=== PATIENT | female | born 1985 | race Caucasian/White ===

== ENCOUNTER 2019-10-07 12:31 | Emergency (ER) | payer BC ==
[~2019-10-07] VITALS: Ht 172.7 cm; Wt 68.0 kg
[2019-10-07 15:00] VITALS: BP 147/72
[2019-10-07] MEDS ORDERED: ALBUTEROL SULFATE 2.5 MG/3 ML NEBU. NEB ONE (15:45)
[2019-10-07] MEDS ORDERED: DEXAMETHASONE SOD PHOS 20 MG/5 ML VIAL. PO ONE (15:45)
[2019-10-07] MEDS ORDERED: PRED50TA PO (16:58)
[2019-10-07] MEDS ORDERED: AZIT250T6 PO (16:58)
--- NOTE | 2019-10-07 17:01 | PHYS DOC ---
Past Medical History Past Medical History: Asthma Past Surgical History: No Surgical History Smoking Status: Current Every Day Smoker Alcohol Use: Occasionally General Adult EDM: Chief Complaint: ASTHMA HPI: HPI: Patient is a 33 year old female who presents to the emergency department with complaints of a productive cough with clear to yellow-green sputum for the last week. Patient states that she has a history of asthma and feels like her inhaler is no longer helping her. Patient denies any known exposure to COVID- 19, states that she wears a mask several times at work and has not been out socializing. She denies any fever, sore throat, body aches, fatigue, nausea, vomiting, diarrhea, chest pain, palpitations, or abdominal pain. She reports that her shortness of breath has increased since yesterday and her wheezing has become more severe, she states she feels like her inhaler is no longer doing an adequate job and requested breathing treatment and steroids. She currently denies any pain. Review of Systems: Review of Systems: Constitutional: Denies fever or chills. [] HENT: Denies ear pain or sore throat, reports postnasal drainage [] Respiratory: See HPI Cardiovascular: Denies chest pain or edema. [] GI: Denies abdominal pain, nausea, vomiting, or diarrhea. [] Musculoskeletal: Denies back pain or joint pain. [] Integument: Denies rash. [] Neurologic: Denies headache Lymphatic: Denies swollen glands. [] Psychiatric: Denies depression or anxiety. [] Heart Score: Risk Factors: Risk Factors: DM, Current or recent (<one month) smoker, HTN, HLP, family history of CAD, obesity. Risk Scores: Score 0 - 3: 2.5% MACE over next 6 weeks - Discharge Home Score 4 - 6: 20.3% MACE over next 6 weeks - Admit for Clinical Observation Score 7 - 10: 72.7% MACE over next 6 weeks - Early Invasive Strategies Current Medications: Current Medications Medications (Trade) Dose Ordered Sig/Ladonna Start Time Stop Time Status Last Admin Dose Admin Albuterol Sulfate (Ventolin Neb Soln) 2.5 mg 1X ONCE 10/07/19 15:45 10/07/19 15:56 DC 10/07/19 16:09 2.5 MG Dexamethasone Sodium Phosphate (Decadron) 10 mg 1X ONCE 10/07/19 15:45 10/07/19 15:56 DC 10/07/19 15:56 10 MG Allergies: Allergies: Allergies Coded Allergies Type Severity Reaction Last Updated Verified No Known Drug Allergies 10/07/19 No Physical Exam: PE: Constitutional: Well developed, well nourished, no acute distress, non-toxic appearance. [] HENT: Normocephalic, atraumatic, bilateral external ears normal, cobblestone appearance of posterior pharynx, no oral exudates, nose normal. [] Eyes: PERRLA, EOMI, conjunctiva normal, no discharge. [] Neck: Normal range of motion, no tenderness, supple, no stridor. [] Cardiovascular:Heart rate regular rhythm, no murmur [] Lungs & Thorax: Bilateral breath sounds coarse with inspiratory and expiratory wheezes, chest nontender, no retractions, speaking full sentences Skin: Warm, dry, no erythema, no rash. [] Back: No tenderness Extremities: No cyanosis, no clubbing, ROM intact, no edema. [] Neurologic: Alert and oriented X 3, no focal deficits noted. [] Psychologic: Affect normal, judgement normal, mood normal. [] Current Patient Data: Vital Signs: Vital Signs Date Time Temp Pulse Resp B/P (MAP) Pulse Ox O2 Delivery O2 Flow Rate FiO2 10/07/19 16:11 92 Room Air 10/07/19 15:00 97.5 78 12 147/72 (97) 97.5 EKG: EKG: [] Radiology/Procedures: Radiology/Procedures: Patient was given a breathing treatment in the emergency department, lung sounds were coarse with scattered expiratory wheezes throughout all leyva following breathing treatment. Patient reported feeling better. [] Course & Med Decision Making: Course & Med Decision Making Pertinent Labs and Imaging studies reviewed. (See chart for details) 33-year-old female presented to the emergency department with complaints of productive cough for a week and worsening asthma symptoms. The patient was given a breathing treatment and 10 mg of p.o. Decadron, she reported feeling better after these medications. Lung sounds improved however remained coarse. With patient's report of a productive cough for over a week I will prescribe Zithromax and a prednisone burst to start tomorrow. Patient instructed to avoid airway irritants. Follow-up with her primary care doctor in the next 1 to 2 days, return to the ER symptoms worsen. Continue using her inhaler as needed for shortness of breath. Patient verbalized an understanding of home care, medications, follow-up, and return to ED instructions and was in agreement with the plan of care. [] Katherine Disclaimer: Katherine Disclaimer: This electronic medical record was generated, in whole or in part, using a voice recognition dictation system. Departure Departure Impression: Primary Impression: Asthma with acute exacerbation in adult Qualified Codes: J45.901 - Unspecified asthma with (acute) exacerbation Additional Impression: Cough productive of yellow sputum Disposition: HOME, SELF-CARE Condition: STABLE Referrals: NO PCP (PCP) Patient Instructions: Asthma Prevention-Brief, Asthma, Adult, [id number] Additional Instructions: Fill prescription(s) and use as directed. Recommend use of a Cool mist humidifier in room at bedtime. Alternate Tylenol or ibuprofen as needed for pain/fever. Increase clear fluids. Avoid airway triggers such as smoke, fragrance, dust, and pollen. May take [id number] cough suppressants as needed. Follow-up with your primary care doctor if symptoms persist, return to the ER if symptoms worsen. Scripts Prednisone (PREDNISONE) 50 Mg Tablet 1 TAB PO DAILY for 4 Days, #4 TAB 0 Refills begin taking on 10/08/19 Prov: PIPO LOZANO APRN 10/07/19 Azithromycin (AZITHROMYCIN TABLET) 250 Mg Tablet 1 PKG PO UD for 5 Days, #6 TAB 0 Refills 2 the first day followed by 1 for days 2-5 Prov: PIPO LOZANO APRN 10/07/19 Justicifation of Admission Dx: Justifications for Admission: Justification of Admission Dx: N/A PIPO LOZANO APRN Oct 07, 2019 17:01
== END 2019-10-07 17:08 | disposition home or self-care (01) ==
LOC: ER 12:31
DX: J45.901 Unspecified asthma with (acute) exacerbation (principal); R05 Cough; F17.200 Nicotine dependence, unspecified, uncomplicated
CPT/HCPCS: 94640; 99283; J1100; J7613